=== PATIENT | female | born 1990 | race Two or more races ===

== ENCOUNTER → 2019-04-24 | Outpatient (CLI) | payer OTHER ==
[~2019-04-24] MED LIST: ATABEX DHA 200200 MG PO; MAXFE CAPLET1 EACH PO
== END | disposition home or self-care (01) ==
LOC: PRENATAL 09:00
DX: O99.89 Other specified diseases and conditions complicating pregnancy, childbirth and the puerperium (principal); O28.3 Abnormal ultrasonic finding on antenatal screening of mother; O26.849 Uterine size-date discrepancy, unspecified trimester; Z36.89 Encounter for other specified antenatal screening

== ENCOUNTER 2019-05-04 07:15 | Inpatient (IN) | payer OTHER ==
[~2019-05-04] VITALS: Ht 154.9 cm; Wt 3.6 kg
[2019-05-04] MEDS ORDERED: MAXFE CAPLET1 EACH PO (08:52)
[2019-05-04] MEDS ORDERED: ATABEX DHA 200200 MG PO (08:52)
== END 2019-05-11 13:52 | disposition home or self-care (01) | DRG 788 ==
LOC: OB/GYN 05-08 07:00 → O/R 05-08 07:08 → OB/GYN 05-08 07:15 → SURG-SUITE 05-08 10:22
PROVIDERS: ADMIT Obstetrics & Gynecology
PROC: 4A1HXCZ Monitoring of Products of Conception, Cardiac Rate, External Approach (ICD-10-PCS; 2019-05-08)
PROC: 10D00Z1 Extraction of Products of Conception, Low, Open Approach (ICD-10-PCS; principal; 2019-05-08 07:00)
DX: O82 Encounter for cesarean delivery without indication (principal); O34.211 Maternal care for low transverse scar from previous cesarean delivery; Z3A.39 39 weeks gestation of pregnancy; Z37.0 Single live birth

== ENCOUNTER → 2020-07-06 | Outpatient (CLI) | payer OTHER | END | disposition home or self-care (01) | LOC: PRENATAL 15:00 | PROVIDERS: ATTEND Obstetrics & Gynecology Maternal & Fetal Medicine | DX: Z36.89 Encounter for other specified antenatal screening (principal); O36.80X1 Pregnancy with inconclusive fetal viability, fetus 1; Z3A.13 13 weeks gestation of pregnancy ==

== ENCOUNTER → 2020-08-16 | Outpatient (CLI) | payer OTHER ==
[~2020-08-16] MED LIST changes: +PROMETRIUM200 MG VAG
== END | disposition home or self-care (01) ==
LOC: PRENATAL 10:00
PROVIDERS: ATTEND Obstetrics & Gynecology Maternal & Fetal Medicine
DX: O35.0XX1 Maternal care for (suspected) central nervous system malformation in fetus, fetus 1 (principal); O35.3XX1 Maternal care for (suspected) damage to fetus from viral disease in mother, fetus 1; O26.852 Spotting complicating pregnancy, second trimester; O26.872 Cervical shortening, second trimester; Z36.89 Encounter for other specified antenatal screening; Z3A.19 19 weeks gestation of pregnancy

== ENCOUNTER → 2020-09-21 | Outpatient (CLI) | payer OTHER | END | disposition home or self-care (01) | LOC: PRENATAL 09:30 | PROVIDERS: ATTEND Obstetrics & Gynecology Maternal & Fetal Medicine | DX: O26.842 Uterine size-date discrepancy, second trimester (principal); O26.872 Cervical shortening, second trimester; O60.02 Preterm labor without delivery, second trimester; Z36.89 Encounter for other specified antenatal screening; Z3A.24 24 weeks gestation of pregnancy ==

== ENCOUNTER 2020-12-19 10:15 | Inpatient (IN) | payer OTHER ==
[~2020-12-19] VITALS: Ht 154.9 cm; Wt 3.6 kg
[2020-12-27] MEDS ORDERED: PRENATABS FA T1 EACH PO (14:31)
[2020-12-30] MEDS ORDERED: PROGESTERONE200 MG (15:54)
[2020-12-30] MEDS ORDERED: ATABEX DHA 200200 MG PO (15:54)
[2021-01-02] MEDS ORDERED: PRENATABS FA T1 EACH PO (12:45)
== END 2021-01-02 13:46 | disposition home or self-care (01) | DRG 788 ==
LOC: O/R 12-30 05:25 → OB/GYN 12-30 05:25 → SURH 12-30 07:00 → OB/GYN 12-30 16:25
PROVIDERS: ADMIT Obstetrics & Gynecology; ATTEND Obstetrics & Gynecology
PROC: 4A1HXFZ Monitoring of Products of Conception, Cardiac Rhythm, External Approach (ICD-10-PCS; 2020-12-30)
PROC: 10D00Z1 Extraction of Products of Conception, Low, Open Approach (ICD-10-PCS; principal; 2020-12-30 07:00)
DX: O34.211 Maternal care for low transverse scar from previous cesarean delivery (principal); O36.63X0 Maternal care for excessive fetal growth, third trimester, not applicable or unspecified; Z3A.38 38 weeks gestation of pregnancy; Z37.0 Single live birth; Z20.822 Contact with and (suspected) exposure to COVID-19

== ENCOUNTER 2020-12-20 16:29 | Outpatient (CLI) | payer OTHER | END 2020-12-20 17:11 | disposition home or self-care (01) | LOC: PRENATAL 16:29 | PROVIDERS: ATTEND Obstetrics & Gynecology Maternal & Fetal Medicine | DX: O26.843 Uterine size-date discrepancy, third trimester (principal); O35.0XX1 Maternal care for (suspected) central nervous system malformation in fetus, fetus 1; Z36.89 Encounter for other specified antenatal screening; Z3A.37 37 weeks gestation of pregnancy ==